=== PATIENT | male | born 1975 | race African-American/Black ===

== ENCOUNTER → 2017-03-22 | Outpatient (CLI) | payer OTHER ==
[~2017-03-22] MED LIST: ALLEGRA ALLERG180 MG PO; FLONASE ALLERG9.9 ML; LEVEMIR100 UNITS/; LIPITOR20 MG PO; MOBIC15 MG PO; NORVASC10 MG PO; NOVOLOG100 UNITS/; PRINIVIL10 MG PO
--- NOTE | ~2017-03-22 | CR63 ---
[facility] A Service of [facility] & [facility] RADIOLOGY TEXT RESULTS PATIENT: SHREYA CANO LOCATION: [facility] : [birth year] UNIT #: [id number] AGE: [address]: Delon Pace MD SEX: M ORDER DR: [id number] [facility] [address] [place], [place] [address] [id number] O MR#: [id number] Acc #: [id number] NAME: SHREYA CANO : 1975 SEX: M STUDY DATE/TIME: 03/22/2017 11:12 UNIT: [facility] ROOM: STUDY DESCRIPTION: CR Chest 2 View Attending Physician: Delon Pace M.D. Ordering Physician: Edvin Pace Primary Care Physician: Andi Child M.D. MEDICAL IMAGING REPORT This report is preliminary unless electronic signature is present EXAM Chest, 03/22/2017, [facility]. HISTORY 41-year-old male patient preop clearance, right knee arthroscopy. Patient short of breath with high blood pressure. COMPARISON Chest, none. FINDINGS Two-view chest demonstrates normal cardiac size and configuration. Hilar structures and mediastinal contours are preserved. Lungs are fully expanded and clear. Bony thorax appears normal. IMPRESSION Negative chest. Dictated by... Harsha Granados M.D. THIS IS AN ELECTRONICALLY VERIFIED REPORT Harsha Granados M.D. at 03/22/2017 4:06 PM MARIA ISABEL/kathryn TD: 03/22/2017 14:52 JOB #: [id number] MEDICAL IMAGING REPORT Page 1 of 1 COPY
--- NOTE | ~2017-03-22 | EKG ---
PATIENT: SHREYA CANO UNIT #: [id number] Ventricular Rate: 83 BPM Atrial Rate: 83 BPM P-R Interval: 154 ms QRS Duration: 88 ms Q-T Interval: 334 ms QTC Calculation(Bezet): 392 ms P [place]: 62 degrees Calculated R [place]: 10 degrees Calculated T [place]: 37 degrees Diagnosis Line: Normal sinus rhythm Diagnosis Line: Right atrial enlargement Diagnosis Line: Septal infarct , age undetermined Diagnosis Line: Abnormal ECG Diagnosis Line: No previous ECGs available Diagnosis Line: Confirmed by KENTON ELI MD ([id number]) on Diagnosis Line: 03/23/2017 7:59:15 AM INTERPRETING MD: ALCIRA PIÑA
[2017-03-22 10:28] LABS: URINE APPEARANCE CLEAR; URINE BILIRUBIN NEG (NEG); URINE BLOOD NEG (NEG); URINE COLOR YELLOW; URINE GLUCOSE 500 MG/DL (NEG); URINE KETONE NEG (NEG); URINE LEUKOCYTE ESTERASE NEG (NEG); URINE NITRATE NEG (NEG); URINE PH 5.5 (5-8); URINE PROTEIN 1+ (NEG); URINE SPECIFIC GRAVITY 1.022 (1.003-1.035)
[2017-03-22 10:30] LABS: URBCS1 AUWI 0-2 /[HPF] (0-2); URINE BACTERIA AUWI NEG (NEGATIVE); URINE SQUAMOUS EPITHELIAL CELL NONE SEEN /[HPF]; UWBCS1 AUWI 0-2 (0-5)
[2017-03-22 10:31] LABS: URINE SOURCE CLEAN CATCH
[2017-03-22 10:43] LABS: HEMATOCRIT 47.9 % (38.0-50.0); HEMOGLOBIN 15.8 gm/dL (13.0-16.0); MEAN CELL VOLUME 87.2 FL (83-96); MEAN CORPUSCULAR HEMOGLOBIN 28.8 PG (28-34); MEAN PLATELET VOLUME 7.9 FL (6.5-11.5); RED BLOOD COUNT 5.49 X10e (3.90-5.60); RED CELL DISTRIBUTION WIDTH 13.6 % (11.0-15.5)
[2017-03-22 11:38] LABS: BILIRUBIN,TOTAL 0.9 mg/dL (0.2-2.0); CALCIUM SERUM 9.6 mg/dL (8.4-10.2); CREATININE SERUM 0.9 mg/dL (0.6-1.4); GLOM FILT RATE Estimated 123.4 mL/min (>60); POTASSIUM 4.3 mmol/L (3.5-5.1); PROTEIN TOTAL SERUM 7.1 g/dL (6.0-8.3)
== END | disposition home or self-care (01) ==
LOC: CAMB 09:59
PROVIDERS: Orthopaedic Surgery
DX: Z01.818 Encounter for other preprocedural examination (principal); M17.11 Unilateral primary osteoarthritis, right knee
CPT/HCPCS: 36415; 71020; 80053; 81003; 85027; 93005

== ENCOUNTER → 2017-03-29 | Day surgery (SDC) | payer OTHER ==
--- NOTE | ~2017-03-29 | OR ---
Unit #: [id number] #: [id number] Patient: SHREYA CANO [id number] [address] [place], [place] [address] [id number] O MR#: [id number] NAME: SHREYA CANO ROOM: Date of Procedure: 03/29/2017 Admission Date: 03/29/2017 Surgeon: Delon Pace M.D. : 1975 Attending Physician: Delon Pace M.D. Primary Care Physician: Andi Child M.D. PROCEDURE OPERATIVE NOTE PREOPERATIVE EVALUATION The patient was seen in preop holding room. The correct leg and knee for surgery was confirmed verbally and marked with a pencil for confirmation in the operating room. The patient's postop care: Keeping his hands off it, leaving the dressing on, not being up much, doing leg lifts, pain medications, etc. were discussed with the patient. He had no additional questions and he will be given written information on this at his discharge. PREOPERATIVE DIAGNOSES Right knee: 1. Torn medial meniscus on MRI. 2. Tricompartmental general arthritis. 3. Medial synovial shelf. 4. Synovitis, tricompartmental. POSTOPERATIVE DIAGNOSES 1. Grade 3 to 3+ degenerative changes medial femoral condyle, grade 1+ to 2 of the medial tibial plateau. 2. Synovitis medially. 3. Loose body, 10 x 16 x 4 mm. 4. 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 5. Medial synovial shelf. 6. Synovitis superiorly. PROCEDURES PERFORMED Right knee diagnostic and operative arthrotomy with: 1. Extensive debridement arthroplasty, essentially the entire weightbearing surface of the medial femoral condyle. 2. Debridement arthroplasty of the tibial plateau. 3. Synovectomy medially. 4. Removal of the loose body 10 x 16 x 4 mm. 5. Excision medial synovial shelf. 6. Debridement arthroplasty of patella. 7. Synovectomy superiorly. 8. Joint lavage. 9. Injection for postoperative hemostasis analgesia and inflammation. SURGEON Delon Pace M.D. COMPUTER TYPESETTER Aaron. Unit #: [id number] #: [id number] Patient: SHREYA CANO ANESTHESIA General. TOURNIQUET/HEMOSTASIS 275 mmHg for less than one hour. TECHNIQUE Under satisfactory general anesthesia, patient's right leg was identified and has been previously marked to confirm the correct operative site. His right leg was meticulously prepped and draped in sterile technique followed by double gloving by the operative team. On completion of this, the patient had the knee systematically inspected. The medial compartment got extra scrutiny as the MRI reading did say he had a torn medial meniscus; however, on probing both the superior and inferior surfaces in totality, patient had no meniscal tear and no instability of the meniscus. However, upon initially entering the joint, a large essentially entire weightbearing surface of the medial femoral condyle was grade 3 with areas of hinging. Articular surface eminently to break off and become a loose body. An extensive debridement arthroplasty with power shaver mechanical technique was then done and with power vacuuming. Prior to this, a loose body was found floating in the knee and it was 10 x 16 x 4 and this was traced down and then removed. Following this, the patient had a synovectomy with a Mitek unit along the medial compartment coinciding with one of the areas of maximal clinical tenderness and not for visualization. Anterior cruciate was seen and probed, normal vascular pattern, normal (1) . The lateral compartment had some soft in the tibial plateau but had remarkably good articular surface. The meniscus was probed and was stable with no tears. The scope was then placed superolaterally. The patient had very red, very angry synovium and extensive synovectomy with a Mitek unit was then done for this. Attention was then turned to the medial synovial shelf. It was very fibrotic and thickened. It was tender preoperatively and it would catch going over the femoral condyle where he did have some osteophytes that did not stick up much. They were smooth with an articular surface but he did have catching and so the medial shelf was excised. Attention was then turned to the patella and grade 2 degenerative changes and mechanical debridement arthroplasty of that was then done. Extensive vacuuming and lavage of the joint was then done for all the fragments that had been breaking off from the numerous areas of arthritis as well as the surgical debris. (2) the joint was injected with 40 mL of 0.25% Marcaine with epi, 1 mL of dexamethasone. Wounds were closed in sterile technique with sterile Betadine, Steri-Strips, Neosporin, Adaptic, sterile compressive dressing. He will be sent home with written instructions to confirm the previous verbal. Dictated by... Yanira Armstrong/mlea TD: 03/29/2017 16:09 JOB #: [id number] Unit #: [id number] #: [id number] Patient: SHREYA CANO PROCEDURE OPERATIVE NOTE Page 1 of 1 X Delon Pace MD PROCEDURE OPERATIVE NOTE
== END | disposition home or self-care (01) ==
LOC: CSUR 06:28
DX: M17.11 Unilateral primary osteoarthritis, right knee (principal); M65.861 Other synovitis and tenosynovitis, right lower leg; M23.41 Loose body in knee, right knee; E11.9 Type 2 diabetes mellitus without complications; E78.5 Hyperlipidemia, unspecified; I10 Essential (primary) hypertension; Z79.4 Long term (current) use of insulin
CPT/HCPCS: 29876; G0289; 82947; J0690; J1100; J2405; J3010